=== PATIENT | male | born 1965 | race Caucasian/White ===

== ENCOUNTER 2019-04-08 13:42 | Emergency (ER) | payer OTHER ==
[~2019-04-08] VITALS: Ht 172.7 cm; Wt 81.8 kg
[2019-04-08] MEDS ORDERED: ZESTRIL2.5 M1 PO (13:54)
[2019-04-08] MEDS ORDERED: HYDROCHLOROTH12.5 M2 PO (13:55)
[2019-04-08] MEDS ORDERED: NEXIUM20 MG PO (13:55)
[2019-04-08] MEDS ORDERED: CYMBALTA20 MG PO (13:55)
[2019-04-08 14:47] LABS: HEMATOCRIT 46.1 % (42.0-52.0); HEMOGLOBIN 16.4 g/dL (13.5-18.0); MEAN CELL VOLUME 83 fl (78-100); MEAN CORPUSCULAR HEMOGLOBIN 30 pg (27-31); MEAN CORPUSCULAR HGB CONC 36 g/dL (33-37); PLATELET COUNT 185 K/mm3 (130-400); RED BLOOD COUNT 5.54 M/mm3 (4.20-5.60); RED CELL DISTRIBUTION WIDTH 12.9 % (11.5-14.5); WHITE BLOOD COUNT 13.5 K/mm3 (4.8-10.8)
[2019-04-08 14:52] LABS: CALCIUM 9.3 mg/dL (8.3-10.5)
[2019-04-08 15:08] LABS: LYMPHOCYTE 9 % (20-51); NEUTROPHILS 84 % (42-75); POTASSIUM 2.4 mmol/L (3.5-5.1)
[2019-04-08 15:09] LABS: MONOCYTE 7 % (3-10)
[2019-04-08 16:21] VITALS: BP 148/72
== END 2019-04-08 16:22 | disposition home or self-care (01) ==
LOC: ED 13:42
PROVIDERS: Nurse Practitioner Family
DX: K52.9 Noninfective gastroenteritis and colitis, unspecified (principal); I10 Essential (primary) hypertension
CPT/HCPCS: J1885; J2405; J7030